=== PATIENT | male | born 1980 | race Caucasian/White ===

== ENCOUNTER 2021-08-04 17:26 | Observation (INO) | payer OTHER ==
[~2021-08-04] VITALS: Ht 193 cm; Wt 70.3 kg
--- NOTE | 2021-08-04 18:19 | NUR ---
ASSUMPTION OF CARE PT ARRIVED TO PCU AT 1713 VIA [facility]. PT ON RA UPON ARRIVAL. PT BELONGINGS IN BAG AND WITH PT UPON ARRIVAL. PT ABLE TO TRANSFER SELF FROM [facility] TO BED, TOLERATED WELL. NO REPORT OF CHEST PAIN/PRESSURE OR SOB. PER REPORT OF LEE MITCHELL, PT HAD EPISODE OF NAUSEA DURING TRANSPORT, TREATED WITH ZOFRAN. LUNGS CLEAR T/O. BP STABLE. PT ORIENTED TO ROOM. CALL LIGHT WITHIN REACH. BED IN LOWEST POSITION.
[2021-08-04 18:42] LABS: BASOPHILS ABSOLUTE AUTO 0.04 K/mm3 (0.00-0.23); BASOPHILS PERCENT AUTO 1 % (0-2); EOSINOPHILS ABSOLUTE AUTO 0.02 K/mm3 (0.00-0.68); EOSINOPHILS PERCENT AUTO 0 % (0-6); Hemoglobin 13.3 g/dL (13.5-17.5); IMMATURE GRAN ABSOLUTE AUTO 0.01 K/mm3 (0.00-0.10); IMMATURE GRAN PERCENT AUTO 0 % (0-1); LYMPHOCYTES ABSOLUTE AUTO 1.59 K/mm3 (0.84-5.20); LYMPHOCYTES PERCENT AUTO 30 % (21-46); MONOCYTES ABSOLUTE AUTO 0.28 K/mm3 (0.16-1.47); MONOCYTES PERCENT AUTO 5 % (4-13); Mean Corpuscular HGB 33.9 pg (26.0-34.0); Mean Corpuscular HGB Conc 33.3 g/dL (31.5-36.5); Mean Corpuscular Volume 102 fL (80-100); Mean Platelet Volume 10.5 fL (9.1-12.4); NEUTROPHILS ABSOLUTE AUTO 3.38 K/mm3 (1.96-9.15); NEUTROPHILS PERCENT AUTO 63 % (41-73); Platelet Count 63 K/mm3 (150-400); RDW Coefficient Variation 13.3 % (11.7-14.2); RDW Standard Deviation 50.7 fL (35.1-46.3); Red Blood Cell Count 3.92 M/mm3 (4.30-5.90); White Blood Cell Count 5.32 K/mm3 (4.00-11.30)
[2021-08-04 18:43] LABS: Albumin, Blood 3.5 g/dL (3.4-5.0); Anion Gap 7 mmol/L (6-16); Blood Urea Nitrogen 16 mg/dL (8-24); CO2, Blood 27 mmol/L (21-32); Calcium, Blood 8.7 mg/dL (8.5-10.1); Chloride, Blood 105 mmol/L (98-108); Glomerular Filtration Rate >60 (60-); Glucose, Blood 99 mg/dL (70-99); Phosphorus, Blood 3.1 mg/dL (2.5-4.9); Sodium, Blood 139 mmol/L (136-145)
--- NOTE | 2021-08-04 19:50 | NUR ---
08/04/211949 Pierre Malin History, Chart, Medications and Allergies reviewed before start of procedure.MONITOR INTACT WITH CONTINUOUS PULSE OXIMETRY AND INTERMITTENT BP.3-LEAD EKG REVIEWED WITH PHYSICIAN PRIOR TO START OF PROCEDURE.See Anesthesia record.
--- NOTE | 2021-08-04 19:52 | NUR ---
PT TO DAY SURGERY PT TO DAY SURGERY AT 1930. PT CURRENLTY ON OCREOTIDE GTT AND PROTONIX GTT. PT HAS 2 IV'S. PT HAS BEEN NPO SINCE ARRIVAL.
[2021-08-04 20:26] LABS: Albumin, Blood 3.6 g/dL (3.4-5.0); Albumin/Globulin Ratio 0.9 (0.8-1.8); Bilirubin, Direct 0.7 mg/dL (0.0-0.3); Bilirubin, Indirect 1.4 mg/dL (0.1-0.7); Bilirubin, Total 2.1 mg/dL (0.1-1.0); Globulin, Blood 4.1 g/dL (2.2-4.0); Total Protein, Blood 7.7 g/dL (6.4-8.2)
--- NOTE | 2021-08-04 21:53 | NUR ---
UPDATE PT BACK FROM DAY SURGERY. PT REPORTING PAIN IN ABD AT THIS TIME. HOSPITALIST NOTIFIED ORDERS FOR 50 MG TRAMADOL Q 6 PRN ORDERED PER PHYSICIAN. VSS WILL CONT TO MONITOR.
[2021-08-04 23:57] LABS: Hematocrit 36.2 % (37.0-53.0); Hemoglobin 12.2 g/dL (13.5-17.5)
[2021-08-05 05:44] LABS: BASOPHILS ABSOLUTE AUTO 0.07 K/mm3 (0.00-0.23); BASOPHILS PERCENT AUTO 1 % (0-2); EOSINOPHILS ABSOLUTE AUTO 0.07 K/mm3 (0.00-0.68); EOSINOPHILS PERCENT AUTO 1 % (0-6); Hematocrit 37.2 % (37.0-53.0); Hemoglobin 12.7 g/dL (13.5-17.5); IMMATURE GRAN PERCENT AUTO 0 % (0-1); LYMPHOCYTES ABSOLUTE AUTO 1.69 K/mm3 (0.84-5.20); LYMPHOCYTES PERCENT AUTO 34 % (21-46); MONOCYTES ABSOLUTE AUTO 0.26 K/mm3 (0.16-1.47); MONOCYTES PERCENT AUTO 5 % (4-13); Mean Corpuscular HGB 34.5 pg (26.0-34.0); Mean Corpuscular HGB Conc 34.1 g/dL (31.5-36.5); Mean Corpuscular Volume 101 fL (80-100); Mean Platelet Volume 10.6 fL (9.1-12.4); NEUTROPHILS ABSOLUTE AUTO 2.92 K/mm3 (1.96-9.15); NEUTROPHILS PERCENT AUTO 58 % (41-73); Platelet Count 58 K/mm3 (150-400); RDW Coefficient Variation 13.3 % (11.7-14.2); RDW Standard Deviation 49.8 fL (35.1-46.3); Red Blood Cell Count 3.68 M/mm3 (4.30-5.90); White Blood Cell Count 5.01 K/mm3 (4.00-11.30)
[2021-08-05 05:56] LABS: International Normalized Ratio 1.37; Prothrombin Time Results 14.1 Sec (9.7-11.5)
[2021-08-05 06:09] LABS: Alanine Aminotransfer (ALT/SGP 28 U/L (12-78); Albumin, Blood 3.1 g/dL (3.4-5.0); Albumin/Globulin Ratio 0.8 (0.8-1.8); Alk Phos 81 U/L (50-136); Anion Gap 3 mmol/L (6-16); Aspartate Aminotrans (AST/SGOT 44 U/L (12-37); Bilirubin, Total 2.2 mg/dL (0.1-1.0); Blood Urea Nitrogen 16 mg/dL (8-24); Bun/Creatinine Ratio 27.4 (12.0-20.0); CO2, Blood 27 mmol/L (21-32); Calcium, Blood 8.3 mg/dL (8.5-10.1); Chloride, Blood 107 mmol/L (98-108); Creatinine, Blood 0.59 mg/dL (0.60-1.20); Globulin, Blood 3.9 g/dL (2.2-4.0); Glomerular Filtration Rate >60 (60-); Glucose, Blood 104 mg/dL (70-99); Potassium, Blood 4.1 mmol/L (3.5-5.5); Sodium, Blood 137 mmol/L (136-145)
--- NOTE | 2021-08-05 06:37 | NUR ---
SHIFT SUMMARY PT ALERT AND ORIENTED X 4. HR STABLE. BP STABLE. NO CP OR PRESSURE. PT REPORTS PAIN IN ABD. PHYSICIAN NOTIFIED, SEE ORDERS. OXYGEN SATURATION MAINTAINED ABOVE 92% ON RA. PT ABLE TO TURN SELF IN BED. WALKS IND TO BATHROOM. OCREOTIDE GTT AND PROTONIX GTT, SEE EMAR. BLOODY STOOL ONCE THIS SHIFT BEFORE EGD. NONE AFTER EGD. WILL CONT TO MONITOR UNTIL REPORT GIVEN TO DAYSHIFT RN.
--- NOTE | 2021-08-05 17:57 | NUR ---
SHIFT SUMMARY PT REMAINED ALERT AND ORIENTED X 4 T/O SHIFT. HE REPORTED A MILD HEADACHE BUT DENIED WANTING TYLENOL. SPO2 IS >95% VIA ROOM AIR. BP STABLE. THIS NURSE WAS NOTIFIED THIS AFTERNOON BY [facility] THAT PT HEART RATE WAS IN 50'S, AT THE TIME PT WAS SLEEPING. HE CONTINUED TO DENY FEELINGS OF CHEST PAIN/PRESSRE. HE REPORTED THAT HE FEELS MILDLY ANXIOUS AT BASELINE AND THEREFOR FELT MILDLY ANXIOUS TODAY. PROTONIX DRIP AND OCTREOTIDE DRIP WERE DISCONTINUED TODAY, PO PROTONIX STARTED THIS AFTERNOON. RIGHT FOREARM IV AND RIGHT AC IV ARE SALINE LOCKED. MILD NAUSEA WAS REPORTED THIS AM BUT THEN PT REPORTED THAT HE DID NOT FEEL NAUSEAS ANYMORE LATER IN SHIFT. HE WAS INDEPENDENT TO BATHROOM. HE VOIDED IN URINAL X 2 AND HAD BM X2, BOTH OF WHICH HAD THE APPEARANCE OF BLOOD. NO OTHER PAIN WAS REPORTED DURING SHIFT. NO OTHER ACUTE CHANGES NOTED. WILL CONTINUE TO MONITOR UNITL REPORT GIVEN. CALL LIGHT IS IN REACH.
[2021-08-06 03:49] LABS: Hematocrit 35.2 % (37.0-53.0); Hemoglobin 12.1 g/dL (13.5-17.5); Mean Corpuscular HGB 34.5 pg (26.0-34.0); Mean Corpuscular HGB Conc 34.4 g/dL (31.5-36.5); Mean Corpuscular Volume 100 fL (80-100); Mean Platelet Volume 10.7 fL (9.1-12.4); Platelet Count 60 K/mm3 (150-400); RDW Coefficient Variation 13.1 % (11.7-14.2); RDW Standard Deviation 48.3 fL (35.1-46.3); Red Blood Cell Count 3.51 M/mm3 (4.30-5.90); White Blood Cell Count 5.29 K/mm3 (4.00-11.30)
--- NOTE | 2021-08-06 05:35 | NUR ---
SHIFT SUMMARY PT ALERT AND ORIENTED X 4. NO ACUTE CHANGES OVERNIGHT. HR STABLE. BP STABLE. OXYGEN SATURATION MAINTAINED ABOVE 95% ON RA. NO CP OR PRESSURE. CALL LIGHT WITHIN REACH. NO BLOODY STOOLS T/O SHIFT. WILL CONT TO MONITOR UNTIL REPORT GIVEN TO DAYSHIFT RN.
[2021-08-06] MEDS ORDERED: CEFDINIR300 M4 PO (10:36)
[2021-08-06] MEDS ORDERED: EUTHYROX25 MCG PO (10:37)
[2021-08-06] MEDS ORDERED: PANT40 PO (10:39)
[2021-08-06] MEDS ORDERED: ONE DAILY MUL400 MCG PO (10:40)
--- NOTE | 2021-08-06 11:03 | NUR ---
DISHCARGE SUMMARY: PATIENT IN NO SIGNS OF ACUTE STRESS. PATIENT DENIES CHEST PAIN/PRESSURE, SOB, ABD PAIN OF ANYKIND, GERD. PATIENT IV REMOVEED BY PATIENT INSURANCE AND BENEFITS CLERK, CATHETER INTACT, PATIENT TOLERATED WELL. DISCHARGE INSTRUCTIONS WERE COMPLETELY UNDERSTOOD WITH NO QUESTIONS COMMENTS OR CONCERNS. PATIENT WAS WALKED OUT WITH PATIENT INSURANCE AND BENEFITS CLERK. PATIENT IN FULL AGREEMENT WITH DISCHARGE AND PLAN.
== END 2021-08-06 11:14 | disposition home or self-care (01) ==
LOC: PCU 17:26
PROVIDERS: Family Medicine; Internal Medicine; Student in an Organized Health Care Education/Training Program; ADMIT Internal Medicine
PROC: 0DJ08ZZ Inspection of Upper Intestinal Tract, Via Natural or Artificial Opening Endoscopic (ICD-10-PCS; principal; 2021-08-04 19:30)
DX: K20.91 Esophagitis, unspecified with bleeding (principal); K76.6 Portal hypertension; I85.11 Secondary esophageal varices with bleeding; K31.89 Other diseases of stomach and duodenum; E03.9 Hypothyroidism, unspecified; K76.0 Fatty (change of) liver, not elsewhere classified; E78.5 Hyperlipidemia, unspecified; D69.6 Thrombocytopenia, unspecified; F17.210 Nicotine dependence, cigarettes, uncomplicated; D62 Acute posthemorrhagic anemia; F41.9 Anxiety disorder, unspecified; F10.20 Alcohol dependence, uncomplicated; K74.60 Unspecified cirrhosis of liver; D68.9 Coagulation defect, unspecified
CPT/HCPCS: 36415; 76705; 80053; 80069; 80076; 85014; 85018; 85025; 85027; 85610; A9270; C9113; J0696; J2001; J2250; J2354; J2405; J2704; J2765; J7060; J7120